=== PATIENT | male | born 1995 | race Caucasian/White ===

== ENCOUNTER 2023-03-17 07:32 | Emergency (ER) | payer OTHER ==
[~2023-03-17] VITALS: Ht 170.2 cm; Wt 70.3 kg
== END 2023-03-17 11:40 | disposition home or self-care (01) ==
LOC: ER 07:32
DX: S13.9XXA Sprain of joints and ligaments of unspecified parts of neck, initial encounter (principal); V43.52XA Car driver injured in collision with other type car in traffic accident, initial encounter; Y93.89 Activity, other specified; Y92.413 State road as the place of occurrence of the external cause; S23.9XXA Sprain of unspecified parts of thorax, initial encounter; S33.9XXA Sprain of unspecified parts of lumbar spine and pelvis, initial encounter